=== PATIENT | male | born 1980 | race Caucasian/White ===

== ENCOUNTER 2018-12-23 06:56 | Emergency (ER) | payer OTHER ==
[~2018-12-23] VITALS: Ht 180.3 cm; Wt 68.0 kg
== END 2018-12-23 08:55 | disposition home or self-care (01) ==
LOC: ED 06:56
DX: M25.512 Pain in left shoulder (principal); F17.200 Nicotine dependence, unspecified, uncomplicated
CPT/HCPCS: 73030; 99283

== ENCOUNTER 2020-07-06 08:23 | Emergency (ER) | payer OTHER ==
[~2020-07-06] VITALS: Ht 180.3 cm; Wt 68.0 kg
--- OUTSIDE RECORDS SUMMARY | 2020-07-06 08:26 | XMS ---
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 Guidelines Source: [employer] [facility] [place] Guidelines Date: 12/22/2019 Care Coordination: Member is currently enrolled in Mental Health Services through [employer]. If services are needed through [employer] please call: Harshil [phone] Gonzalo/Pedro Dominguez\\[facility]; [phone] Crisis [phone] E.D. VISIT COUNT (12 MO.) 1 [facility] TOTAL 1 NOTE: Visits indicate total known visits. ED/UCC VISIT TRACKING (12 MO.) 07/06/2020 08:[address] [facility] [place] TYPE: Emergency COMPLAINT: - BACK PAIN INPATIENT VISIT TRACKING (12 MO.) No inpatient visits to display in this time frame [email or web address]
[2020-07-06] MEDS ORDERED: CYCLOBENZAPRINE10 MG PO (08:52)
== END 2020-07-06 09:12 | disposition home or self-care (01) ==
LOC: ED 08:23
DX: M54.5 Low back pain (principal); F17.200 Nicotine dependence, unspecified, uncomplicated
CPT/HCPCS: 96372; 99283; J1885

== ENCOUNTER 2020-11-28 10:05 | Emergency (ER) | payer OTHER ==
[~2020-11-28] VITALS: Ht 180.3 cm; Wt 68.0 kg
[~2020-11-28 10:05] MED LIST: CYCLOBENZAPRINE10 MG PO
--- OUTSIDE RECORDS SUMMARY | 2020-11-28 10:08 | XMS ---
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 - Has Care Guidelines CARE PROVIDERS There are no care providers on record at this time. Guidelines Source: [email or web address] - [place] Guidelines Date: 12/22/2019 Care Coordination: Member is currently enrolled in Mental Health Services through [employer]. If services are needed through [email or web address] please call: Harshil [phone] oGnzalo/Pedro Dominguez\\[facility]; [phone] Crisis [phone] E.D. VISIT COUNT (12 MO.) 2 [facility]. TOTAL 2 NOTE: Visits indicate total known visits. ED/UCC VISIT TRACKING (12 MO.) 11/28/2020 10:06 [facility] [place] TYPE: Emergency COMPLAINT: - R SHOULDER INJURY 07/06/2020 08:23 [facility] [place] TYPE: Emergency COMPLAINT: - BACK PAIN DIAGNOSES: - Low back pain - Nicotine dependence, unspecified, uncomplicated INPATIENT VISIT TRACKING (12 MO.) No inpatient visits to display in this time frame [id number]
== END 2020-11-28 11:08 | disposition home or self-care (01) ==
LOC: ED 10:05
DX: S43.401A Unspecified sprain of right shoulder joint, initial encounter (principal); X50.9XXA Other and unspecified overexertion or strenuous movements or postures, initial encounter; F17.200 Nicotine dependence, unspecified, uncomplicated
CPT/HCPCS: 73030; 99283-25

== ENCOUNTER 2021-03-10 13:13 | Emergency (ER) | payer OTHER ==
[~2021-03-10] VITALS: Ht 180.3 cm; Wt 68.0 kg
--- OUTSIDE RECORDS SUMMARY | 2021-03-10 13:16 | XMS ---
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 If services are needed through [employer] please call: Harshil [phone] Gonzalo/Pedro Shepard\[facility]; [phone] Crisis [phone] E.Deangelo VISIT COUNT (12 MO.) [address] [place] [address] TOTAL 3 NOTE: Visits indicate total known visits. ED/C VISIT TRACKING (12 MO.) 03/10/2021 13:14 [facility] [place] TYPE: Emergency COMPLAINT: - HEAD INJURY 11/28/2020 10:06 [facility] [place] TYPE: Emergency COMPLAINT: - R SHOULDER INJURY DIAGNOSES: - Other and unspecified overexertion or strenuous movements or postures, initial encounter - Pain in right shoulder - Nicotine dependence, unspecified, uncomplicated - Unspecified sprain of right shoulder joint, initial encounter 07/06/2020 08:23 [facility] [place] [place] TYPE: Emergency COMPLAINT: - BACK PAIN DIAGNOSES: - Low back pain - Nicotine dependence, unspecified, uncomplicated INPATIENT VISIT TRACKING (12 MO.) No inpatient visits to display in this time frame [email or web address]
== END 2021-03-10 15:26 | disposition home or self-care (01) ==
LOC: ED 13:13
DX: S06.0X0A Concussion without loss of consciousness, initial encounter (principal); W01.10XA Fall on same level from slipping, tripping and stumbling with subsequent striking against unspecified object, initial encounter; F17.200 Nicotine dependence, unspecified, uncomplicated; Z88.8 Allergy status to other drugs, medicaments and biological substances
CPT/HCPCS: 99283

== ENCOUNTER 2024-01-15 06:59 | Emergency (ER) | payer OTHER ==
[~2024-01-15] VITALS: Ht 180.3 cm; Wt 85.0 kg
--- OUTSIDE RECORDS SUMMARY | 2024-01-15 07:04 | XMS ---
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 ED/UCC VISIT TRACKING (12 MO.) 01/15/2024 06:59 [facility] [place] TYPE: Emergency COMPLAINT: - SOB, HIGH B/P 01/14/2024 09:19 [facility] [place] TYPE: Emergency COMPLAINT: - BLOOD PRESSURE PROBLEM INPATIENT VISIT TRACKING (12 MO.) No inpatient visits to display in this time frame [id number]
[2024-01-15 07:15] LABS: BASOPHILS 0.5 % (0-2); EOSINOPHILS 1.2 % (0-6); HEMOGLOBIN 14.8 g/dL (12.0-18.0); LYMPHOCYTES 30.1 % (24-44); MCH 30.6 (27-36); MCHC 33.7 g/dl (30-36); MCV 90.7 fl (81-99); MONOCYTES 6.3 % (0-12); NEUTROPHILS 61.9 % (39-80); PLATELET COUNT 263 K/uL (140-440); RBC 4.85 M/ul (4.3-5.7); RDW 14.1 (10.5-15.0)
[2024-01-15 07:40] LABS: ALBUMIN 4.1 g/dL (3.4-5.0); ALBUMIN/GLOBULIN RATIO 1.08 (1.1-2.4); ANION GAP 12.5 (7-21); BILIRUBIN, TOTAL 0.4 ng/dL (0.2-1.0); BUN/CREATININE RATIO 5.26 (6.0-28.6); CALCIUM 9.1 mg/dL (8.5-10.1); CREATININE, SERUM 1.14 mg/dL (0.70-1.30); POTASSIUM 3.5 mmol/L (3.5-5.1); PROTEIN, TOTAL 7.9 g/dL (6.4-8.2); TSH, 3RD GENERATION 0.799 uIU/mL (0.358-3.740)
[2024-01-15] MEDS ORDERED: ASPIRIN 81 MG CHEW PO ONE (07:45)
[2024-01-15] MEDS ORDERED: HEParin SOD (PORCINE) 5,000 UNIT/ML VIAL IV ONE (08:00)
[2024-01-15] MEDS ORDERED: HEPARIN SOD,PORK IN 0.45% NACL 500 ML IV SCH (08:00)
[2024-01-15] MEDS ORDERED: LORazepam 1 MG TAB PO ONE (08:00)
[2024-01-15 08:08] LABS: INR 1.02 (0.80-1.30)
[2024-01-15 08:10] LABS: PARTIAL THROMBOPLASTIN TIME 26.2 Sec (22.9-41.3)
[2024-01-15 11:02] VITALS: BP 135/59
--- NOTE | 2024-01-16 23:42 | EKG ---
[facility] [address] [facility] [place], [place] [address] Signed Normal sinus rhythm Minimal voltage criteria for LVH, may be normal variant ( Sokolow-Barker ) ST \T\ T wave abnormality, consider inferior ischemia Prolonged QT Abnormal ECG No previous ECGs available Confirmed by Irene Carlton MD () on 01/16/2024 11:42:27 PM Electronically Signed By: IRENE CARLTON MD 01/16/24 2342 PATIENT NAME: DIONTE AVELAR Electrocardiogram DATE OF : 84 PHYSICIAN: IRENE CARLTON MD REPORT #: [id number] REPORT IS CONFIDENTIAL AND NOT TO BE RELEASED WITHOUT AUTHORIZATION
== END 2024-01-15 11:00 | disposition short-term general hospital (02) ==
LOC: ED 06:59
PROVIDERS: Emergency Medicine
DX: I21.4 Non-ST elevation (NSTEMI) myocardial infarction (principal); F17.200 Nicotine dependence, unspecified, uncomplicated; Z91.02 Food additives allergy status
CPT/HCPCS: 36415; 71045; 80053; 84443; 84484; 85025; 85610; 85730; 93005; 93010; 96365; 96366; 96376; 99285-25; A9270; A9270-GY; J1644